=== PATIENT | female | born 1995 | race Caucasian/White ===

== ENCOUNTER 2017-08-31 13:19 | Emergency (ER) | payer MEDICAID ==
[~2017-08-31] VITALS: Ht 172.7 cm; Wt 119.0 kg
[2017-08-31 13:27] VITALS: BP 135/76
[2017-08-31] MEDS ORDERED: NAPR-56 PO (14:04)
== END 2017-08-31 14:12 | disposition home or self-care (01) ==
LOC: ER 13:19
DX: S63.642A Sprain of metacarpophalangeal joint of left thumb, initial encounter (principal); W21.01XA Struck by football, initial encounter; Y93.89 Activity, other specified; Y92.89 Other specified places as the place of occurrence of the external cause; Y99.8 Other external cause status
CPT/HCPCS: 29125; 73140; 99284